=== PATIENT | female | born 1990 | race Caucasian/White ===

== ENCOUNTER → 2020-02-11 10:39 | Outpatient (BNVA) | payer MEDICAID, SELFPAY | PROVIDERS: Family Provider Family Medicine; PCP Family Medicine; Visit Provider Family Medicine | DX: Z20.2 Contact with and (suspected) exposure to infections with a predominantly sexual mode of transmission (principal); Z01.419 Encounter for gynecological examination (general) (routine) without abnormal findings | CPT/HCPCS: 81000; 87491; 87591; 87661; 88175 ==

== ENCOUNTER 2020-03-27 12:57 | Outpatient (CLI) | payer MEDICAID, SELFPAY ==
--- NOTE | 2020-03-27 13:09 | XR_ITS ---
WS: [id number] LUMBAR SPINE FLEXION AND EXTENSION TECHNIQUE: 3 views of the lumbar spine: Lateral neutral, flexion, and extension views. CLINICAL INFORMATION: LOW BACK PAIN COMPARISON: None. FINDINGS: Normal lumbar alignment on the neutral view. No instability on the flexion and extension views. Mild facet arthropathy lower lumbar spine worse L5 -S1. Disc space heights and vertebral body heights well-preserved. IMPRESSIO 1. No instability on flexion-extension 2. Mild facet arthropathy L5-S1.
== END 2020-03-27 12:58 | disposition home or self-care (01) ==
LOC: RADWPI 13:01
PROVIDERS: PCP Family Medicine; Visit Provider Nurse Practitioner
DX: M47.817 Spondylosis without myelopathy or radiculopathy, lumbosacral region (principal)
CPT/HCPCS: 72120

== ENCOUNTER → 2020-04-08 18:16 | Outpatient (BNVA) | payer MEDICAID, SELFPAY | PROVIDERS: PCP Family Medicine; Visit Provider Nurse Practitioner Family | DX: Z20.828 Contact with and (suspected) exposure to other viral communicable diseases (principal) | CPT/HCPCS: 87635 ==

== ENCOUNTER → 2020-06-06 11:25 | Outpatient (BNVA) | payer MEDICAID, SELFPAY | PROVIDERS: PCP Family Medicine; Visit Provider Nurse Practitioner Family | DX: Z20.822 Contact with and (suspected) exposure to COVID-19 (principal) | CPT/HCPCS: 87635 ==

== ENCOUNTER 2020-07-08 09:00 | Outpatient (CLI) | payer MEDICAID, SELFPAY ==
--- NOTE | 2020-07-08 09:07 | XRR_ITS ---
PROCEDURE INFORMATION: Exam: XR Lumbosacral Spine Exam date and time: 07/08/2020 9:11 AM Age: 30 years old Clinical indication: Low back pain; Additional info: Low back pain x 9 years TECHNIQUE: Imaging protocol: XR of the lumbosacral spine. Views: 2 or 3 views. COMPARISON: CR XR lumbar spine f/e only [id number] 03/27/2020 1:14 PM FINDINGS: Bones/joints: 5 non-rib bearing lumbar segments in near anatomical alignment. Alignment is normal. No fracture Disc space height is well-maintained other than mild decrease in disc space height L5-S1. No osteophytosis. No visualized pars defect. Facets are without acute process. Soft tissues: Unremarkable. Other findings: No motion with flexion or extension. XR/XR lumbar spine f/e only [id number] IMPRESSION: Disc space height is well-maintained other than mild decrease in disc space height L5-S1.
--- NOTE | 2020-07-08 09:07 | CT_ITS ---
WS: [id number] Exam: CT lumbar spine wo con* [id number] Date/Time of Exam: 07/08/2020 9:10 AM Reason For Exam: LOW BACK PAIN DLP: 1788.[address] scans at [facility] use at least one of these dose optimization techniques: automat ed exposure control; mA and/or kV adjustment per patient size (includes targeted exams where dose is matched to clinical indication); or iterative reconstruction. The lumbar spine evaluated in the axial plane with sagittal coronal reformatted images. There is broad-based posterior disc protrusion at L5-S1. Protruding disc material contacts both nerve roots in the subarticular spaces. There also appears to be a significant stenosis of the right neura l foramen secondary to protruding disc material as well as bone spurring along the posterior inferior margin of the L5 vertebra. The L1-2, the L2-3, the L3-4 and L4-5 disc levels demonstrated no sign o f bulging or herniated disc. No central spinal canal stenosis was demonstrated. No other sign of fora ollie stenosis. No fracture or osseous destruction identified. Mild facet DJD at all levels. Paraspin al and retroperitoneal soft tissue structures are unremarkable. CT/CT lumbar spine wo con* [id number] IMPRESSION: 1. Broad-based posterior disc bulge at L5-S1. Protruding disc material contacts both nerve roots in the subarticular spaces. There is right neural foraminal s tenosis at this level secondary to bulging disc material and hypertrophic bone spurring. 2. The remaining disc levels demonstrated no evidence of bulging or herniated d isc, central spinal canal stenosis or foraminal stenosis.
== END 2020-07-08 09:01 | disposition home or self-care (01) ==
LOC: RADWPI 09:02
PROVIDERS: PCP Family Medicine; Visit Provider Nurse Practitioner
DX: M51.27 Other intervertebral disc displacement, lumbosacral region (principal)
CPT/HCPCS: 72120; 72131

== ENCOUNTER → 2020-07-17 14:55 | Outpatient (BNVA) | payer MEDICAID, SELFPAY | PROVIDERS: PCP Family Medicine; Visit Provider Nurse Practitioner Family | DX: R50.9 Fever, unspecified (principal); Z20.822 Contact with and (suspected) exposure to COVID-19 | CPT/HCPCS: 87635 ==

== ENCOUNTER → 2020-11-17 14:57 | Outpatient (BNVA) | payer MEDICAID, SELFPAY | PROVIDERS: PCP Family Medicine; Visit Provider Nurse Practitioner Family | DX: Z20.822 Contact with and (suspected) exposure to COVID-19 (principal) | CPT/HCPCS: 87635 ==

== ENCOUNTER 2020-12-05 16:39 | Emergency (ER) | payer MEDICAID, SELFPAY ==
[2020-12-05 17:33] VITALS: BP 119/79; PULSE 109; RESP 17; TEMP 36.9; O2SAT 97; BMI 27.7
--- NOTE | 2020-12-05 17:50 | W.ED.COVID ---
HPI - COVID General: Chief Complaint: COVID symptoms Stated Complaint: SOB/COVID + Time Seen by Provider: 12/05/20 17:47 Triage information: No fever, cough or shortness of breath. No known COVID + exposure last 14 days History of Present Illness: HPI Narrative: Patient request be tested again for Covid. She test positive A2. Patient just having aches and pains. MD complaint: known COVID positive COVID 19 common symptoms: positive body aches; negative non-productive cough, productive cough, dyspnea, headache(s), throat pain, nasal congestion, nausea or vomiting COVID 19 other sytmptoms: negative chest pain COVID Results: SARS-CoV-2 RNA (RT-PCR) Detected (NOT DETECTED) A 11/17/20 14:57 11/17/20 Review of Systems Const: Reports: body aches Eyes: Denies: change in vision or blurry vision ENMT: Denies: throat pain or nasal congestion Card: Denies: chest pain or dyspnea on exertion Resp: Denies: dyspnea, productive cough or non-productive cough GI: Denies: abdominal pain, nausea or vomiting Musc: Reports: other (Myalgia); Denies: extremity pain Skin/Breast: Denies: rash Neuro: Denies: headache(s) Psych: Denies: anxiety or depression Nando/Lymph: Denies: easy bruising PFSH ED PFSH: Medical History Chronic lumbar pain Social History (Updated 11/17/20 @ 09:20 by Courtney Mcclain NP) Smoking and tobacco status: current every day smoker Alcohol intake: never Marital status: Physical Exam Const: COMMON NORMALS: no acute distress Resp: COMMON NORMALS: normal respiratory effort Psych: COMMON NORMALS: mental status grossly normal Course Vital Signs: Vital signs: Vital Signs Temperature 98.5 F 12/05/20 17:33 Pulse Rate 109 H 12/05/20 17:33 Respiratory Rate 17 12/05/20 17:33 Blood Pressure 119/79 12/05/20 17:33 Pulse Oximetry 97 12/05/20 17:33 MDM - COVID MDM Narrative: Medical decision making narrative: Explained to patient that no need to be retested results would still show up positive. 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 She has past 10-day incubation. COVID Results: SARS-CoV-2 RNA (RT-PCR) Detected (NOT DETECTED) A 11/17/20 14:57 11/17/20 Discharge Plan Discharge Patient Disposition: Home Clinical Impression: COVID-19 Condition: Stable Prescriptions: No Action hydrocodone-acetaminophen 10-325 mg tablet 1 tab PO Q8H PRNRF: 0 methylprednisolone [Medrol (Nacho)] 4 mg tablets,dose pack See Rx Instructions PO PER PKG DIR Qty: 21 RF: 0 Discharge Orders: Discharge ED (Routine); Ordered 12/05/20 Ordered By: Nadir Guerrero Referrals: Janice Khalil MD [Primary Care Provider] - Discharge Diet: Usual diet Discharge Activity: Increase activity as tolerated Patient Instructions: Viral Syndrome (ED) Activity Restrictions/Additional Instructions: Do some study and on Covid long-haul syndrome information find info on that -be aware that possibly symptoms can last for a long time. Coding Level of Care Code ED Cable Television Program Director for Brian Salcedo
[2020-12-05 18:33] VITALS: RESP 17; TEMP 36.9; O2SAT 97
== END 2020-12-05 18:33 | disposition home or self-care (01) ==
PROVIDERS: Emergency Provider Nurse Practitioner Family; PCP Family Medicine
DX: U07.1 COVID-19 (principal); F17.210 Nicotine dependence, cigarettes, uncomplicated
CPT/HCPCS: 99281

== ENCOUNTER → 2021-10-18 13:37 | Outpatient (BNVA) | payer MEDICAID, SELFPAY | PROVIDERS: PCP Family Medicine; Visit Provider Emergency Medicine | DX: Z20.822 Contact with and (suspected) exposure to COVID-19 (principal) | CPT/HCPCS: 87635 ==

== ENCOUNTER 2024-01-17 14:28 | Emergency (ER) | payer MEDICAID, SELFPAY ==
[2024-01-17 14:38] VITALS: BP 126/75; PULSE 64; RESP 18; TEMP 36.6; O2SAT 99; BMI 29.3
[2024-01-17 15:19] LABS: Basophils % 0.3 %; Eosinophils # 0.1 10^3/uL (0.0-0.8); Eosinophils % 0.6 %; Lymphocytes # 4.5 10^3/uL (0.8-4.8); Lymphocytes % 37.5 %; Mean Corpuscular HGB Conc 34.3 g/dL (30-55); Mean Corpuscular Hemoglobin 32.2 pg (27-33); Mean Platelet Volume 11.3 fL (7.4-10.4); Monocytes # 0.5 10^3/uL (0.2-0.9); Monocytes % 4.2 %; Neutrophils # 6.88 10^3/uL (1.8-7.7); Neutrophils % 57.2 %; Nucleated Red Blood Cells % 0 %; Platelet Count 259 10^3/cmm (157-399); Red Blood Count 5.21 10^6/uL (3.85-5.65); White Blood Count 12.03 10^3/uL (3.29-11.43)
[2024-01-17 16:17] VITALS: BP 137/70; PULSE 67; RESP 16; O2SAT 99
--- NOTE | 2024-01-17 16:21 | ED_ITS ---
HPI - General Adult 2 General: Chief complaint: Vaginal Bleeding Stated complaint: preg with spotting Time Seen by Provider: 01/17/24 16:11 Source: patient Mode of arrival: ambulatory Limitations: no limitations History of Present Illness: 33-year-old female states she believes s he is 4 months states she had a positive test roughly 2 months ago states she has not seen OB she states that today she has had some slight bleeding she denies any pain she denies any dysuria or vomiting. Associated symptoms: Deny chest pain, dyspnea, headache(s), nausea, rash or vomiting Related Data Home Medications Medication Instructions Recorded Confirmed hydrocodone 10 mg-acetaminophen 1 tab PO Q8H PRN 11/17/20 12/27/23 325 mg tablet acetaminophen 325 mg capsule 325 mg PO QID PRN 12/31/20 12/27/23 (Tylenol) gabapentin 300 mg capsule 300 mg PO TID 12/31/20 12/27/23 ibuprofen 200 mg capsule 200 mg PO Q6H PRN 12/31/20 12/27/23 Allergies Allergy/AdvReac Type Severity Reaction Status Date / Time No Known Allergies Allergy Verified 12/27/23 08:58 Review of Systems 2 Const: Denies: fever(s), chills, body aches or change in appetite ENMT: Denies: throat pain or dental pain Card: Denies: chest pain Resp: Denies: dyspnea GI: Denies: abdominal pain, nausea, vomiting or diarrhea : Reports: vaginal bleeding Musc: Denies: neck pain or back pain Skin/Breast: Denies: rash Neuro: Denies: headache(s) PFSH ED 2 PFSH: Medical History Lumbar spondylosis Chronic lumbar pain DDD & lumbar spondylosis Social History Smoking and tobacco/nicotine status: current every day tobacco/nicotine user Alcohol intake: never Substance/Drug Use: never Marital status: Physical Exam 2 Const: COMMON NORMALS: no acute distress, patient oriented x3 and healthy appearing HENMT: COMMON NORMALS: normocephalic and atraumatic HEAD & SCALP: n ormocephalic and atraumatic Eye: COMMON NORMALS: Equal, round and reactive pupils present and EOMs intact bilaterally PUPIL: Yes Equal, round and reactive pupils present Neck/C-Spine: COMMON NORMALS: full ROM and supple Chest: COMMONS NORMALS: normal inspection of the chest Resp: COMMON NORMALS: normal respiratory effort Cardio: COMMON NORMALS: regular rate RATE: regular rate GI: COMMON NORMALS: Normal to inspection, nondistended, normoactive bowel sounds present, Soft to palpation, non-tender and no masses PALPATION: Yes Soft to palpation Extremity: COMMON NORMALS: normal to inspection and full ROM Neuro: COMMON NORMALS: patient oriented x3, moves all extremities and no focal motor deficits Psych: COMMON NORMALS: mental status grossly normal, Normal thought process present and cooperative THOUGHT PROCESS: Normal thought process present Skin: COMMON NORMALS: no rashes or lesions noted and no wounds GENERAL SKIN EXAM: no rashes or lesions noted Course 2 Vital Signs: Vital signs: Vital Signs Temperature 97.8 F 01/17/24 14:38 Pulse Rate 67 01/17/24 16:17 Respiratory Rate 16 01/17/24 16:17 Blood Pressure 137/70 01/17/24 16:17 Pulse Oximetry 99 01/17/24 16:17 Oxygen Delivery Me thod Room Air 01/17/24 16:17 MDM - General Adult Medical Decision Making Patient presents for vaginal bleeding likely her menstruation her blood test here is negative I did a bedside ultrasound and did not see any signs of either she stable for discharge blood works otherwise normal she is follow-up with PCP return if worsening. Lab Data I reviewed the patient's lab results. 01/17/24 15:10 Laboratory Results WBC 12.03 10^3/uL (3.29-11.43) H 01/17/24 15:10 RBC 5.21 10^6/uL (3.85-5.65) 01/17/24 15:10 Hgb 16.80 g/dL (11.27-16.99) 01/17/24 15:10 Hct 49.0 % (36-47) H 01/17/24 15:10 MCV 94.0 fl (85-98) 01/17/24 15:10 MCH 32.2 pg (27-33) 01/17/24 15:10 MCHC 34.3 g/dL (30-55) 01/17/24 15:10 RDW 12.0 % (12.1-15.1) L 01/17/24 15:10 Plt Count 259 10^3/cmm (157-399) 01/17/24 15:10 MPV 11.3 fL (7.4-10.4) H 01/17/24 15:10 Neut % (Auto) 57.2 % 01/17/24 15:10 Lymph % (Auto) 37.5 % 01/17/24 15:10 [place] % (Auto) 4.2 % 01/17/24 15:10 Eos % (Auto) 0.6 % 01/17/24 15:10 Baso % (Auto) 0.3 % 01/17/24 15:10 Neut # (Auto) 6.88 10^3/uL (1.8-7.7) 01/17/24 15:10 Lymph # (Auto) 4.5 10^3/uL (0.8-4.8) 01/17/24 15:10 [place] # (Auto) 0.5 10^3/uL (0.2-0.9) 01/17/24 15:10 Eos # (Auto) 0.1 10^3/uL (0.0-0.8) 01/17/24 15:10 Baso # (Auto) 0.0 10^3/uL (0.0-0.1) 01/17/24 15:10 Nucleated RBC % (auto) 0 % 01/17/24 15:10 Nucleated RBCs # 0.0 /100WBC 01/17/24 15:10 Ser , Semi-Qnt 1.00 mIU/mL 01/17/24 15:10 Blood Type O Positive 01/17/24 15:10 Rho(D) Type Rh positive 01/17/24 15:10 Antibody Screen Negative 01/17/24 15:10 No radiology studies performed this visit Discharge Plan Discharge Patient Disposition: Home Clinical Impression: Vaginal bleeding Condition: Stable Prescriptions: No Action hydrocodone-acetaminophen 10-325 mg tablet 1 tab PO Q8H PRN gabapentin 300 mg capsule 300 mg PO TID acetaminophen [Tylenol] 325 mg capsule 325 mg PO QID PRN ibuprofen 200 mg capsule 200 mg PO Q6H PRN Discharge Orders: Discharge ED (Routine); Ordered 01/17/24 Ordered By: Viji Dukes Discharge Diet: Advance as tolerated Discharge Activity: Resume usual activity Patient Instructions: Abnormal (Dysfunctional) Uterine Bleeding (ED) Stand Alone Forms: Work/School Release Coding Level of Care Code ED Stiff Straw Hat Washer for Brian Salcedo
[2024-01-17 16:27] VITALS: BP 112/76; PULSE 88; O2SAT 98
== END 2024-01-17 16:28 | disposition home or self-care (01) ==
PROVIDERS: Emergency Provider Emergency Medicine
DX: N93.9 Abnormal uterine and vaginal bleeding, unspecified (principal)
CPT/HCPCS: 36415; 84702; 85025; 86850; 86900; 99283

== ENCOUNTER 2024-01-27 07:48 | Inpatient (IN) | payer MEDICAID, SELFPAY ==
[2024-01-27] VITALS (10 sets, daily range): BP systolic 118–139; BP diastolic 77–87; PULSE 72–130; RESP 12–22; TEMP 36.8–37.3; O2SAT 93–99; BMI 26.6
--- NOTE | 2024-01-27 07:50 | ECG_ITS ---
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 Measurements Intervals [place] Rate: 98 P: 52 ME: 152 QRS: 83 QRSD: 85 T: 42 QT: 328 QTc: 420 Interpretive Statements SINUS RHYTHM No previous ECG available for comparison Electronically Signed On 01-27-2024 22:24:50 CDT by Chanelle Jean M.D. [id number]
--- NOTE | 2024-01-27 08:01 | XR_ITS ---
WS: [id number] XR chest 1V portable [id number] REASON FOR EXAM: dyspnea/cough FINDINGS: Mild tortuosity of the thoracic aorta. Heart size is within normal limits. Calcified granulomas disease in both hemithoraces. No focal lung lesion. No acute pulmonary parenchymal or pleural abnormality. Moderate degenerative spondylosis in the mid and lower thoracic spine. XR/XR chest 1V portable [id number] IMPRESSION: No acute chest abnormality identified.
--- NOTE | 2024-01-27 08:10 | CT_ITS ---
WS: [id number] CT HEAD TECHNIQUE: Noncontrast CT of the head obtained from the skullbase to the vertex. CLINICAL INFORMATION: AMS COMPARISON: None. DLP: 2013.[address] scans at [facility] use at least one of these dose optimization techniques: automated e xposure control; mA and/or kV adjustment per patient size (includes targeted exams where dose is matc hed to clinical indication); or iterative reconstruction. FINDINGS: No evidence of intracranial hemorrhage or mass effect. Ventricular system and basal cisterns are wagner nt. No extra-axial fluid collections. No evidence of mass or mass effect. Normal stein-white differen tiation. Paranasal sinuses and mastoid air cells are well aerated. .Normal visualized soft tissues. CT/CT head wo con* [id number] IMPRESSION: 1. No evidence of intracranial hemorrhage or mass effect. 2. No acute intracranial findings.
[2024-01-27 08:24] LABS: Basophils # 0.1 10^3/uL (0.0-0.1); Basophils % 0.4 %; Eosinophils % 0.2 %; Hematocrit 47.2 % (36-47); Lymphocytes # 3.6 10^3/uL (0.8-4.8); Lymphocytes % 25.8 %; Mean Corpuscular HGB Conc 34.3 g/dL (30-55); Mean Corpuscular Hemoglobin 31.5 pg (27-33); Mean Corpuscular Volume 91.7 fl (85-98); Mean Platelet Volume 11.7 fL (7.4-10.4); Monocytes # 0.7 10^3/uL (0.2-0.9); Monocytes % 5.2 %; Neutrophils # 9.41 10^3/uL (1.8-7.7); Neutrophils % 68.1 %; Nucleated Red Blood Cells % 0 %; Platelet Count 241 10^3/cmm (157-399); Red Blood Count 5.15 10^6/uL (3.85-5.65); Red Cell Distribution Width 11.7 % (12.1-15.1); White Blood Count 13.81 10^3/uL (3.29-11.43)
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
[2024-01-27 08:39] LABS: Lactic Sepsis W/Reflex 0.7 mmol/L (0.5-2.2)
[2024-01-27 08:40] LABS: Alanine Aminotransferase 8 U/L (0-33); Albumin Level 4.5 g/dL (3.5-5.2); Alkaline Phosphatase 83 U/L (35-105); Anion Gap 14.4 (5-19); Aspartate Amino Transferase 10 U/L (0-32); Blood Urea Nitrogen 6 mg/dL (6-20); Carbon Dioxide 26 mmol/L (22-29); Chloride 103 mmol/L (98-107); Globulin 2.4 g/dL (1.3-4.6); Glomerular Filtration Rate 95.2 mL/min (90-130); Glucose 101 mg/dL (65-115); Osmolality Calculated 288 mOsm/kg (285-295); Potassium 3.4 mmol/L (3.5-5.1); Sodium 140 mmol/L (136-145); Total Bilirubin 0.4 mg/dL (0.15-1.2); Total Protein 6.9 g/dL (6.6-8.7)
[2024-01-27 08:45] LABS: Acetaminophen < 5.0 ug/mL (10-30); Alcohol Level < 10 mg/dL (0-10); Salicylate < 0.3 mg/dL (3-10)
[2024-01-27 09:06] LABS: Bilirubin Urine Negative (Negative); Blood Urine Negative (Negative); Glucose Urine UA Negative (Normal); Ketones Urine Trace (Negative); Leukocyte Esterase Urine Trace (Negative); Nitrate Urine Negative (Negative); Protein Urine Trace (Negative); Specific Gravity, Urine 1.023 (1.005-1.030); Urine Appearance Clear (CLEAR); Urine Color Dark Yellow (Yellow); pH Urine 6.5 (5-7)
[2024-01-27 09:08] LABS: Add Urine Microscopic? YES; Bacteria Urine Trace /hpf; Hyaline Casts Urine 2.87 /lpf; RBC Urine 0-2 /hpf (0-2); WBC Urine 0-5 /hpf (0-5)
[2024-01-27 10:54] LABS: Amphetamines Screen Urine Negative (Negative); Barbiturates Screen Urine Negative (Negative); Benzodiazepines Screen Urine Positive (Negative); Cocaine Screen Urine Negative (Negative); Opiate Screen Urine Positive (Negative); PCP Screen Urine Negative (Negative); THC Screen Urine Positive (Negative)
--- NOTE | 2024-01-27 12:03 | PC.NURSE ---
Attempted to read rights to patient. Patient became very agitated and stated I just want to go outside and smoke. This nurse instructed patient that she can not go outside she is on a 96 hour hold at this time. Patient stated I am not going to stay if i can not go smoke. I instructed patient again that we can not let her go smoke. Patient stated to this nurse Get the fuck out of my room now. Copy of rights left at the bedside.
--- NOTE | 2024-01-27 12:11 | PC.NURSE ---
Patient was placed on a 96 hour hold, patient was moved from room 5 to room 8. Patient would not get dressed out for security, I went into the room, spoke with the patient nicely and she agreed to change out and put the green scrubs on and take her jewelry off.
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
[2024-01-27] MEDS: acetaminophen 325 mg Tablet 650 MG PO (20:38)
[2024-01-27] MEDS: hyDROXYzine 25 mg Capsule 50 MG PO (21:36)
[2024-01-27] MEDS: trazodone 50 mg Tablet PO (21:36)
[2024-01-27] MEDS: ibuprofen 600 mg Tablet PO (21:36)
--- NOTE | 2024-01-27 22:57 | PC.NURSE ---
Patient behavior. Around 2200, this nurse was told that this patient came out of her room and was anxious. Making statements to the effect of she was looking for some she hates. I went and sat down on the bed and had a conversation with the patient was able to be de-escalated. She was demanding to be discharged and I explained that she would have to speak with the psychiatrist and she became calm. Patient was reminded that she had medication available for further anxiety and she declined.
[2024-01-28 06:00] VITALS: RESP 15
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
--- NOTE | 2024-01-28 09:44 | PC.NURSE ---
Morning assessment Patient irritable during morning assessment. Patient wanting to know when her discharge paperwork will be in. Patient denies Si, HI, AVH, anxiety, and depression. Patient no longer has a headache
[2024-01-28] MEDS: nicotine 4 mg lozenge MUCOUS MEM (09:53)
[2024-01-28] MEDS: OLANZapine 5 mg ODT PO ×2 (09:53→22:21)
[2024-01-28] MEDS: LORazepam 2 mg Tablet PO (12:22)
[2024-01-28] MEDS: haloperidol 5 mg Tablet PO ×2 (12:22→23:31)
[2024-01-28] MEDS: diphenhydrAMINE 50 mg Capsule PO (12:22)
--- NOTE | 2024-01-28 12:25 | PC.NURSE ---
Patient agitated, pacing the coto. Patient threatened staff that she will do what she has to do to get off the unit. Patient stated that the only reason she is here is because she asked for a cigarette in the ED. Patient yelling at this nurse. Attempts to verbally redirect patient unsuccessful. Patient offered medication to calm her down. Patient refused, saying I am calm, this is me calm. Patient then said, the reason I am worked up is because you of you guys! To paraphrase patient, patient said that the reason she is upset is because she is being held against her will, that she doesn't need to be here, that her dog , her kids are scared, and her doesn't know where she is. This nurse offered to get her phone so she can make phone calls. Patient said, sure give me my fucking phone with a smirk. This nurse informed patient that she can only have her phone to get numbers, not to use. Patient said, just give me my fucking phone . This nurse told patient that, until she calms down, she will not get her phone. Patient stomped off to dayroom. Patient has been talking on phone with family members. Patient said her is on the way with her ethics manager. patient was agreeable to take oral B52 medications.
[2024-01-28] MEDS: nicotine 21 mg Patch 1 PATCH TRANSDERMA (13:47)
[2024-01-28 14:00] VITALS: RESP 16
--- NOTE | 2024-01-28 15:05 | PC.NURSE ---
Patient's , Eamon Harris, came to the unit at about 1330, saying that he is here to tile picker his . This nurse attempted to educate on the 96-hour process. kept interrupting this nurse and Security Venitaey while attempting to talk with him. said that he does not want to talk to us, that he wants to somebody higher up. said he is upset because nobody called him to tell him that his was in the hospital. said that the police said the patient can be picked up from the hospital. This nurse called Senior Solutions Architect MITZI Vides to inform her of the situation. Patient and were talking through the window. Patient getting amped up and agitated. Before bottle house pumper could arrive, patient yelling at staff and security. At this point, this nurse told patient that he needed to leave. Patient was escorted out of the lobby by Arias Arreola with security. Shortly thereafter, Hope arrived. Yvette Vides Conley, and Krystyna Enciso went outside to further educate patient about the 96-hour process.
--- NOTE | 2024-01-28 16:04 | PC.NURSE ---
PT WAS GIVIN AN SOME ORAL MEDICATIONS AND IS FINALLY RESTING AT 1400 VITALS. RESPIRATIONS WERE OBTAINED AT 16. CHARGE NURSE NOTIFIED.
[2024-01-28 20:17] VITALS: RESP 15
--- NOTE | 2024-01-28 20:17 | PC.NURSE ---
pt refused vital signs at this time. Respiration rate 15. extension service specialist in charge notified.
[2024-01-28] MEDS: nicotine 2 mg Gum BUCCAL ×2 (20:28→23:31)
[2024-01-28] MEDS: hyDROXYzine 25 mg Capsule 50 MG PO (20:28)
[2024-01-28] MEDS: trazodone 50 mg Tablet PO ×2 (20:28→23:31)
[2024-01-28] MEDS: ibuprofen 600 mg Tablet PO (21:45)
[2024-01-28] MEDS: fixodent 39 gm Tube 1 APPLIC DENTAL (22:08)
--- NOTE | 2024-01-28 22:53 | PC.NURSE ---
Patient behavior Around 1914 staff informed this nurse that the patient was getting agitated and wanting to leave immediately. This nurse went to the patients room and asked to sit on the bed with her and visit. She stated she was under the impression she would be discharged tonight. I explained that I did not having any discharge orders for her. We continued to talk and she starting remaining calm and agreed to be cooperative the rest of the night. She was given medication for anxiety and sleep, See MAR. No further issues from the patient at this time.
--- NOTE | 2024-01-28 23:33 | PC.NURSE ---
Patient Behavior Patient was heard whaling and when asked id she was ok she stated she could not sleep. She was given additional medication for sleep. See MAR.
[2024-01-29 06:00] VITALS: RESP 14
--- NOTE | 2024-01-29 06:13 | PC.NURSE ---
Asked pt to obtain vital signs. pt resting in bed. charger operator notified. Respiration rate 14.
[2024-01-29] MEDS: nicotine 2 mg Gum BUCCAL ×4 (07:49→20:11)
[2024-01-29] MEDS: nicotine 4 mg lozenge MUCOUS MEM (08:31)
--- NOTE | 2024-01-29 08:36 | PC.NURSE ---
Patient calm during assessment. Patient denies SI, HI, AVH, depression and anxiety. Patient reports gas. Simethicone ordered.
[2024-01-29] MEDS: simethicone 80 mg Chew PO (09:18)
[2024-01-29] MEDS: fixodent 39 gm Tube 1 APPLIC DENTAL (09:51)
--- NOTE | 2024-01-29 12:42 | P.NPUPN_ITS ---
Subjective NPU 2 Subjective: Patient presented today reporting that she is feeling better. She endorsed feeling optimistic about how things are going overall. She continues to be in some level of denial about the events of the morning that ended her up on the 96-hour hold per staff reports and direct conversation. She continues to downplay any chance that addiction was driving the strange behavior. She continues to be focused on when discharge is possible and we discussed the likelihood of discharge in the next 48 hours and very possibly tomorrow. Mental Status Exam 2 MSE Comments: This is an overweight versus obese white female in hospital scrubs with improved grooming and eye contact.? No abnormal movements except for mild psychomotor retardation.? She was more cooperative with exam in no acute distress.? Speech was slightly decreased in rate and volume and normal prosody. Mood described as feeling better, affect was congruent and brighter. Thought process linear, thought content: Patient denied suicidal or homicidal ideation, there were no delusions reported or noted, she denied auditory or visual hallucinations. Attention and concentration were intact and memory appeared somewhat reliable but some things may have been intentionally elusive, but none were formally tested.? She is alert and oriented x 3.? Insight and judgment limited, impulse control is limited. Vitals/I&O/Wt Last Vital Signs Temp 99.1 F 01/27/24 16:03 Pulse 83 01/27/24 16:03 Resp 14 01/29/24 06:00 BP 118/83 01/27/24 16:03 Pulse Ox 93 01/27/24 16:03 O2 Del Method Room Air 01/27/24 16:04 Weight last 48 hrs Weight 75.75 kg Data NPU 01/27/24 08:17 01/27/24 08:17 A&P Assessment and plan (1) Acute psychosis: (2) Altered mental status: (3) Cannabis use disorder: Plan This is a 33-year-old white female, denying a history of mental health challenges presenting reporting a misunderstanding. The patient presented with altered mental status and possible substance-induced psychosis. She has a history of depression, anxiety, and suicidal ideation. She also has a history of substance use and legal issues. The patient's mental status exam was within normal limits, with no current suicidal or homicidal ideation, hallucinations, or paranoia. 1.? Continue off of medication. 2.? Continue continue every 15 minute checks for safety. 3.? Encourage individual, group and milieu therapies on the unit. 4. Obtain collateral information. 5. Encourage sober living treatment after discharge at the highest level care to which she is willing to commit. Involuntary Hold Information 2 96 Hour Hold: 96 Hour Involuntary Admission: Yes 96 Hour Hold Ending Date: 02/03/24 96 Hour Hold Ending Time: 11:30 Attestations NPU 2 Medical Necessity Statement*: Inpatient hospitalization is medically necessary and the clinically appropriate intervention at this time. We will monitor medication to make changes as indicated. Likely length of stay 1-3 days. Coding Level of Care Code Acute Code for Chg Fwd Diagnoses Acute psychosis F23 Altered mental status R41.82 Cannabis use disorder F12.90
[2024-01-29 14:00] VITALS: BP 116/81; PULSE 75; RESP 17; TEMP 36.6; O2SAT 98
[2024-01-29] MEDS: diphenhydrAMINE 50 mg Capsule PO ×2 (14:52→19:36)
--- NOTE | 2024-01-29 14:54 | PC.NURSE ---
Patient reports that her tongue is feeling thick . Patient denies tingling of throat and mouth, no sensation of tightening of throat. Patient denies SOB.No known drug allergies. Patient given benadryl 50mg PO. Will continue to closely monitor patient
--- NOTE | 2024-01-29 16:44 | PC.NURSE ---
Patient's informed staff that patient has a previous allergic reaction to fixodent. When confronted, patient said that she had forgotten about this allergy. ERIBERTO Pulliam contacted pharmacist Syed who said that the allergy to place in chart is zinc.
[2024-01-29] MEDS: trazodone 50 mg Tablet PO ×2 (20:11→22:10)
[2024-01-29] MEDS: OLANZapine 5 mg ODT PO (20:11)
[2024-01-29 22:00] VITALS: BP 117/84; PULSE 98; RESP 18; TEMP 37; O2SAT 96
[2024-01-29] MEDS: hyDROXYzine 25 mg Capsule 50 MG PO (23:30)
[2024-01-29] MEDS: acetaminophen 325 mg Tablet 650 MG PO (23:31)
[2024-01-30] MEDS: nicotine 2 mg Gum BUCCAL (00:05)
[2024-01-30 06:00] VITALS: RESP 14
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
[2024-01-30] MEDS: nicotine 21 mg Patch 1 PATCH TRANSDERMA (09:03)
[2024-01-30 09:25] VITALS: RESP 14
== END 2024-01-30 10:34 | disposition home or self-care (01) | DRG 897 ==
LOC: ER 10:03 → NP 15:24
PROVIDERS: Admitting Provider Psychiatry & Neurology Psychiatry; Emergency Provider Family Medicine; Visit Provider Psychiatry & Neurology Psychiatry
DX: F11.959 Opioid use, unspecified with opioid-induced psychotic disorder, unspecified (principal); M47.816 Spondylosis without myelopathy or radiculopathy, lumbar region; G89.29 Other chronic pain; F17.210 Nicotine dependence, cigarettes, uncomplicated; F32.A Depression, unspecified; F41.9 Anxiety disorder, unspecified; E66.9 Obesity, unspecified; F12.90 Cannabis use, unspecified, uncomplicated; Z68.27 Body mass index [BMI] 27.0-27.9, adult; Z81.1 Family history of alcohol abuse and dependence
CPT/HCPCS: 36415; 70450; 71045; 80053; 80306; 80307; 81001; 83605; 85025; 93005; 97150; 97165; 99285; Q0163

== ENCOUNTER → 2024-06-11 09:01 | Outpatient (BNVA) | payer BC, MEDICAID, SELFPAY | PROVIDERS: Visit Provider Obstetrics & Gynecology | DX: N92.0 Excessive and frequent menstruation with regular cycle (principal); F19.11 Other psychoactive substance abuse, in remission | CPT/HCPCS: 80053; 80307; 83001; 84443; 85025 ==

== ENCOUNTER → 2024-06-27 14:59 | Outpatient (BNVA) | payer BC, MEDICAID, SELFPAY | PROVIDERS: Visit Provider Obstetrics & Gynecology | DX: N92.0 Excessive and frequent menstruation with regular cycle (principal); N85.00 Endometrial hyperplasia, unspecified | CPT/HCPCS: 76830 ==